=== PATIENT | male | born 1985 | race Caucasian/White ===

== ENCOUNTER 2016-09-06 10:11 | Emergency (ER) | payer OTHER ==
[~2016-09-06] VITALS: Ht 167.6 cm; Wt 81.8 kg
[2016-09-06 10:17] VITALS: TEMP 37; Ht 167.6 cm; Wt 81.8 kg
[2016-09-06] MEDS ORDERED: KETOROLAC TROMETHAMINE 30 MG/ML VIAL IV STA (11:00)
[2016-09-06] MEDS ORDERED: DEXAMETHASONE SOD INJ 10 MG/ML VIAL IV ONE (11:00)
[2016-09-06] MEDS ORDERED: ONDANSETRON INJ 2 MG/ML 2 ML VIAL IV STA (11:00)
[2016-09-06] MEDS ORDERED: HYDROmorphone INJ 1 MG/ML SYR IV STA ×2 (11:00→12:58)
[2016-09-06 12:05] LABS: URINE APPEARANCE CLEAR (CLEAR); URINE BILIRUBIN NEG (NEG); URINE COLOR YELLOW; URINE NITRITE NEG (NEG); URINE PH 7.5 (4.5-7.5); UROBILINOGEN NEG (NEG)
[2016-09-06 12:10] LABS: MANUAL MICROSCOPIC REQUIRED? NO; REVIEW REQ? NO
--- NOTE | 2016-09-06 12:42 | DIAGNOSTIC IMAGING REPORT ---
MRI LUMBAR SPINE W/O CONTRAST CLINICAL HISTORY: Low back pain with bilateral leg radiculopathy. WORK INJURY. TECHNIQUE: Sagittal and axial T1, T2 and STIR images were obtained. COMPARISON STUDY: 06/05/2014 OBSERVATIONS: The vertebral bodies and posterior elements appear intact. There is no abnormal bony signal present to suggest a marrow replacement process. L1-2: No disc protrusions or extrusions. No evidence of spinal canal or neural foraminal compromise. L2-3: No disc protrusions or extrusions. No evidence of spinal canal or neural foraminal compromise. L3-4: No disc protrusions or extrusions. No evidence of spinal canal or neural foraminal compromise. L4-5: There is a small broad-based central disc protrusion with mild deformity anterior aspect of thecal sac. There is minor bilateral foraminal narrowing. L5-S1: There is a small broad-based central disc protrusion minimally asymmetric to the right. This minimally deforms the anterior aspect the thecal sac. There is minor bilateral foraminal narrowing. There are suspected postsurgical changes the L5-S1 level. The conus medullaris and cauda equina appear normal. IMPRESSION: 1. Small predominantly central disc protrusions at the L4-5, and L5-S1 levels. There is minor secondary deformity of the thecal sac at these 2 levels. Electronically signed by: Rodolfo Mosquera M.D. 09/06/2016 12:41 PM Dictated Date/Time: 09/06/2016 12:35 PM
[2016-09-06] MEDS ORDERED: PRED20TA PO (13:56)
[2016-09-06] MEDS ORDERED: OXYC1TAB3 PO (13:56)
--- NOTE | 2016-09-06 13:58 | EMERGENCY ROOM VISIT NOTE ---
ED Visit Note First contact with patient: 10:30 CHIEF COMPLAINT: Acute low back pain after injury this morning HISTORY OF PRESENT ILLNESS: Patient is a 30-year-old white male who is roughly 2 years status post lumbar laminectomy and discectomy who presents to emergency department for evaluation of a low back injury that occurred this morning. He was trying to roll something heavy while bent over, and he felt cracking and popping in his low back with acute sharp, stabbing pain. It is located in the midline of his low back, that radiates along his beltline bilaterally. He states that he "lost feeling in his legs" for about 15 minutes. He then was able to ambulate, he tried to walk around and moved to see if he could loosen things up, but it was still very painful. He did not take any medication for discomfort. He rates his pain a 10/10 presently. He has urinated since the incident and denies any bowel or bladder incontinence or saddle anesthesias. He feels better when he is leaning forward on his cane and taking pressure off of his back. He had been seen by his surgeon, Dr. marcelino, a couple of months ago for ongoing low back pain. He was referred to physical therapy which provided him with minimal relief. He has pain in his back when he moves his legs and his legs feel weak, but he denies any numbness, tingling or paresthesias. REVIEW OF SYSTEMS:Review of systems as per HPI. All other systems reviewed were negative. 10 systems reviewed. PMH: Electronic medical records are reviewed and summarized as above/below. See Problem List. SOCIAL HISTORY: Patient lives at home. He is . Smoker. PHYSICAL EXAM: Vital Signs: Reviewed Nurse's notes. CONSTITUTIONAL: Patient is who is awake and alert and sitting on the bedside chair in moderate distress due to their back pain. There is significant discomfort with position changes. NECK: No bruits auscultated. Supple without lymphadenopathy. No thyromegaly. No meningeal signs. Full active range of motion without discomfort. CARDIOVASCULAR: Regular rate and rhythm, with normal S1 and S2, no murmur or gallop or rub is heard. No carotid bruits auscultated. No JVD. Peripheral pulses easily palpable. RESPIRATORY: Breath sounds equal and clear to auscultation without wheezes, rales, or rhonchi heard. Full and equal chest expansion without accessory muscle use or retractions. ABDOMEN: Bowel sounds are present. Abdomen is soft, nontender and nondistended. INTEGUMENTARY: No lesions or rash, normal skin turgor. LYMPH: No lymphadenopathy. SPINE: Examination of the patient's back does not demonstrate any ecchymosis, abrasions or outward signs of trauma. Well-healed surgical scar is noted. No erythema, increased warmth or induration. Patient has midline discomfort to palpation over the low lumbar spine. There is no pain over the SI joint or the sciatic notch. He has increased pain with range of motion including rotation and flexion. EXTREMITIES: Leg lengths are symmetrical. Negative logroll bilaterally. Normal strength including dorsi-flexion and plantar flexion of the great toes and ankles and flexion and extension of the knees. Positive bilateral straight leg raise testing. Lower extremity DTRs are equal and symmetrical bilaterally. Distal pulses are easily palpable. Sensation light touch is intact over the lower extremities bilaterally. EMERGENCY DEPARTMENT COURSE: The patient was seen and evaluated as above. His old records were reviewed. IV lock was initiated and he was Zofran 4 mg IV, Dilaudid 1 mg IV, Decadron 10 mg IV and Toradol 30 mg IV. Lumbar spine MRI was obtained. Findings are as noted below. He has mild disc bulging/protrusion at the L4 5 and L5-S1 levels. There is mild foraminal narrowing. The patient requested additional medication for pain and was given an additional Dilaudid 1 mg IV. Urinalysis was completely clear. MRI findings were reviewed with the patient. He has a history of a lumbar disc herniation, however his injured his back while pushing something heavy today. Differential diagnoses entertained included lumbar sprain, recurrent disc herniation, vertebral compression fracture, among others. His physical exam is not consistent with acute cord compression or cauda equina syndrome. I do not suspect hematoma or epidural abscess. Patient was provided an appointment with his spine surgeon, Dr. Oliver. He requested crutches. He was discharged to home on a prednisone taper and was given oxycodone for pain. He was educated on the worrisome signs or symptoms for which he should return to the emergency department. He rated his discomfort a 6/10 at discharge. MRI LUMBAR SPINE W/O CONTRAST CLINICAL HISTORY: Low back pain with bilateral leg radiculopathy. WORK INJURY. TECHNIQUE: Sagittal and axial T1, T2 and STIR images were obtained. COMPARISON STUDY: 06/05/2014 OBSERVATIONS: The vertebral bodies and posterior elements appear intact. There is no abnormal bony signal present to suggest a marrow replacement process. L1-2: No disc protrusions or extrusions. No evidence of spinal canal or neural foraminal compromise. L2-3: No disc protrusions or extrusions. No evidence of spinal canal or neural foraminal compromise. L3-4: No disc protrusions or extrusions. No evidence of spinal canal or neural foraminal compromise. L4-5: There is a small broad-based central disc protrusion with mild deformity anterior aspect of thecal sac. There is minor bilateral foraminal narrowing. L5-S1: There is a small broad-based central disc protrusion minimally asymmetric to the right. This minimally deforms the anterior aspect the thecal sac. There is minor bilateral foraminal narrowing. There are suspected postsurgical changes the L5-S1 level. The conus medullaris and cauda equina appear normal. IMPRESSION: 1. Small predominantly central disc protrusions at the L4-5, and L5-S1 levels. There is minor secondary deformity of the thecal sac at these 2 levels. Problem List Medical Problems: (1) Arthritis of hand, left Status: Resolved (2) Back pain Status: Resolved (3) Herniated lumbar intervertebral disc Status: Resolved (4) Knee pain Status: Resolved (5) Lumbar disc disease Status: Resolved (6) Pain, dental Status: Resolved Surgical Problems: (1) History of lumbar discectomy Status: Resolved Current/Historical Medications Scheduled Prednisone (Prednisone), 0 PO DAILY Scheduled PRN Oxycodone Ir (Roxicodone Ir), 1-2 TAB PO Q4H PRN for Severe Pain Allergies Coded Allergies: No Known Allergies (Unverified , 04/09/15) Vital Signs Date Time Temp Pulse Resp B/P Pulse Ox O2 Delivery O2 Flow Rate FiO2 09/06/16 14:50 78 18 118/58 96 09/06/16 14:30 78 18 118/58 96 Room Air 09/06/16 12:30 83 18 116/69 96 09/06/16 10:17 37.0 105 20 118/71 96 Room Air Laboratory Results Test 09/06/16 11:40 Urine Color YELLOW Urine Appearance CLEAR (CLEAR) Urine pH 7.5 (4.5-7.5) Urine Specific Thornton 1.010 (1.000-1.030) Urine Protein NEG (NEG) Urine Glucose (UA) NEG (NEG) Urine Ketones NEG (NEG) Urine Occult Blood NEG (NEG) Urine Nitrite NEG (NEG) Urine Bilirubin NEG (NEG) Urine Urobilinogen NEG (NEG) Urine Leukocyte Esterase NEG (NEG) Medications Administered Medications (Trade) Dose Ordered Sig/Casie Route Start Time Stop Time Status Last Admin Dose Admin Ketorolac Tromethamine (Toradol Inj) 30 mg NOW STAT IV 09/06/16 11:00 09/06/16 11:03 DC 09/06/16 11:09 30 MG Dexamethasone Sodium Phosphate (Decadron Inj) 10 mg NOW ONCE IV 09/06/16 11:00 09/06/16 11:03 DC 09/06/16 11:10 10 MG Hydromorphone HCl (Dilaudid Inj) 1 mg NOW STAT IV 09/06/16 11:00 09/06/16 11:03 DC 09/06/16 11:10 1 MG Ondansetron HCl (Zofran Inj) 4 mg NOW STAT IV 09/06/16 11:00 09/06/16 11:03 DC 09/06/16 11:09 4 MG Hydromorphone HCl (Dilaudid Inj) 1 mg NOW STAT IV 09/06/16 12:58 09/06/16 12:59 DC 09/06/16 14:11 1 MG Departure Information Impression Primary Impression: Acute low back pain Additional Impression: Lumbar disc disease Prescriptions Oxycodone Ir (Roxicodone Ir) 5 Mg Tab 1-2 TAB PO Q4H Y for Severe Pain, #20 TAB For Initial Treatment Prov: Thea Freeman PA 09/06/16 Prednisone (Prednisone) 20 Mg Tab 0 PO DAILY, #18 TAB 3 DAILY FOR 3 DAYS, THEN 2 DAILY FOR 3 DAYS, THEN 1 DAILY FOR 3 DAYS. Prov: Thea Freeman PA 09/06/16 Referrals No Doctor, Assigned (PCP) Elbert Oliver, DO Patient Instructions [facility] Additional Instructions DO NOT drive, drink alcohol, operate machinery, or perform dangerous activities today. You were given medications in the ER that can affect your ability to safely function or operate a vehicle. Prednisone 20mg: Once daily until the prescription is finished. It is best to take this earlier in the day as some patients note occasional difficulty falling asleep when taken in the late evening. Oxycodone (OxyIR) 5mg: Take 1-2 pills every four hours for breakthrough pain. Avoid alcohol, operating machinery or dangerous equipment, working on ladders or roofs, DRIVING, or situations where being under the influence may be dangerous. It is recommended to use an iycj-asz-iqfugew stool softener such as Colace, 100mg twice daily while taking this medication to avoid constipation. Acetaminophen(Tylenol) may be used for fever or pain. Use 1000mg every six hours as needed. Avoid using more than 3000mg in a 24 hour period. This medication can be taken if you need to drive, work, or perform activities which may be dangerous when taking narcotic pain medication. Rest and avoid heavy lifting until your symptoms resolve and then gradually return to full activity. A good rule of thumb is if it hurts your back to perform a certain activity, then it should be avoided until you are healthy again. A heating pad, warm compresses, or a hot shower may help with tight muscles and can be done several times a day as needed. Continue current medications. Return to the ER immediately for any numbness, tingling, severe pain, loss of control of your bowels or bladder, inability to walk, or as needed. Follow up with Dr. Oliver as scheduled for a recheck of your current condition. Problem Qualifiers
[2016-09-06 14:50] VITALS: BP 118/58; PULSE 78; O2SAT 96
[2016-10-13] MEDS ORDERED: HYDR-4330 PO (08:56)
[2017-02-11] MEDS ORDERED: MULT-506 PO (09:48)
[2017-02-11] MEDS ORDERED: TRAM-10 PO (09:48)
[2017-02-28] MEDS ORDERED: OXYC-57 PO (08:08)
[2017-02-28] MEDS ORDERED: HYDR-3419 PO (10:01)
== END 2016-09-06 14:50 | disposition home or self-care (01) ==
LOC: C.EDB 10:12 → C.EDC 14:50
DX: M54.5 Low back pain (principal); M51.06 Intervertebral disc disorders with myelopathy, lumbar region; M19.90 Unspecified osteoarthritis, unspecified site; F17.200 Nicotine dependence, unspecified, uncomplicated; Z98.890 Other specified postprocedural states

== ENCOUNTER → 2016-10-21 | Outpatient (CLI) | payer OTHER ==
[~2016-10-21] MED LIST: ATV/1 PO; HYDR-3419 PO; HYDR-4330 PO; MULT-506 PO; OXYC-57 PO; TRAM-10 PO
--- NOTE | 2016-10-21 12:31 | DIAGNOSTIC IMAGING REPORT ---
CHEST 2 VIEWS ROUTINE CLINICAL HISTORY: PRE OP TESTING. PT TO LAB FIRST COMPARISON STUDY: No previous studies for comparison. FINDINGS: The bones soft tissues and hemidiaphragms are normal. The cardiomediastinal silhouette is normal. The lungs are clear. The pulmonary vasculature is normal. IMPRESSION: Negative chest. Electronically signed by: Fernando Corral M.D. 10/21/2016 12:30 PM Dictated Date/Time: 10/21/2016 12:29 PM
[2016-10-21 12:50] LABS: BASO % 0.2 %; BASO ABS # 0.02 K/uL (0-0.2); COMPLETE YES; EOS % 1.5 %; HEMATOCRIT 43.8 % (42-52); IG% 0.2 %; LYMPH % 19.7 %; LYMPH ABS # 2.52 K/uL (1.2-3.4); MEAN CELL VOLUME 86.1 fL (80-100); MEAN CORPUSCULAR HEMOGLOBIN 29.3 pg (25-34); MEAN PLATELET VOLUME 9.3 fL (7.4-10.4); MONO % 7.8 %; NEUT % 70.6 %; PLATELET COUNT 331 K/uL (130-400); RED BLOOD COUNT 5.09 M/uL (4.7-6.1); WHITE BLOOD COUNT 12.77 K/uL (4.8-10.8)
== END | disposition home or self-care (01) ==
LOC: C.LAB 11:43
PROVIDERS: ATTEND Physician Assistant
DX: Z01.811 Encounter for preprocedural respiratory examination (principal); Z01.812 Encounter for preprocedural laboratory examination

== ENCOUNTER → 2016-10-21 | Outpatient (CLI) | payer OTHER ==
[2016-10-13 08:56] VITALS: Ht 170.2 cm; Wt 81.8 kg
[~2016-10-21] VITALS: Ht 170.2 cm; Wt 81.8 kg
[~2016-10-21] MED LIST changes: +CEFAZOLIN 2000 MG/60 ML D5W IV SCH; +LACTATED RINGER'S 1000ML 1,000 ML IV SCH; +LACTATED RINGER'S 1000ML 500 ML IV ONE; +SODIUM CHLORIDE 0.9% 1000ML 1,000 ML IV SCH
== END | disposition home or self-care (01) ==
LOC: C.LAB 08:00 → EDSTATUS 10-28 08:25
PROVIDERS: ATTEND Orthopaedic Surgery Orthopaedic Surgery of the Spine
DX: Z01.811 Encounter for preprocedural respiratory examination (principal); Z01.812 Encounter for preprocedural laboratory examination; M51.06 Intervertebral disc disorders with myelopathy, lumbar region

== ENCOUNTER → 2017-02-14 | Outpatient (CLI) | payer OTHER ==
[~2017-02-14] MED LIST changes: -CEFAZOLIN 2000 MG/60 ML D5W IV SCH; -HYDR-4330 PO; -LACTATED RINGER'S 1000ML 1,000 ML IV SCH; -LACTATED RINGER'S 1000ML 500 ML IV ONE; -SODIUM CHLORIDE 0.9% 1000ML 1,000 ML IV SCH
--- NOTE | 2017-02-14 14:52 | DIAGNOSTIC IMAGING REPORT ---
CHEST 2 VIEWS ROUTINE HISTORY: 31 years-old Male ENCOUNTER FOR STERILIZATION preoperative exam. No acute chest complaints. Initial study. COMPARISON: Chest radiograph 10/21/2016 TECHNIQUE: Frontal and lateral views of the chest FINDINGS: The cardiomediastinal and hilar silhouettes are within normal limits. There is no pneumothorax, pleural effusion or focal airspace consolidation. The bones of the chest are grossly intact. IMPRESSION: No acute cardiopulmonary process. The above report was generated using voice recognition software. It may contain grammatical, syntax or spelling errors. Electronically signed by: Marcelo Soto M.D. 02/14/2017 2:51 PM Dictated Date/Time: 02/14/2017 2:50 PM
== END | disposition home or self-care (01) ==
LOC: C.RAD 14:26
PROVIDERS: ATTEND Urology
DX: Z30.2 Encounter for sterilization (principal)

== ENCOUNTER 2017-02-28 05:37 | Day surgery (SDC) | payer OTHER ==
[2017-02-11 09:49] VITALS: BMI 29.0
[~2017-02-28] VITALS: Ht 165.1 cm; Wt 79.5 kg
[~2017-02-28 05:37] MED LIST changes: -ATV/1 PO; -HYDR-3419 PO; -OXYC-57 PO
[2017-02-28] MEDS ORDERED: ATV/1 PO (05:55)
[2017-02-28 06:00] VITALS: BP 112/79; PULSE 89; TEMP 36.9; O2SAT 98; Ht 165.1 cm; Wt 79.5 kg
[2017-02-28] MEDS ORDERED: LACTATED RINGER'S 1000ML 1,000 ML IV SCH (06:00)
[2017-02-28] MEDS ORDERED: BUPIVACAINE 0.5 % 5 MG/1 ML MPF 30ML VIAL ONE (06:57)
[2017-02-28] MEDS ORDERED: ONDANSETRON INJ 2 MG/ML 2 ML VIAL ONE (06:59)
[2017-02-28] MEDS ORDERED: FENTANYL CITRATE INJ 50 MCG/1 ML 2 ML VIAL ONE (06:59)
[2017-02-28] MEDS ORDERED: DEXAMETHASONE SOD INJ 4 MG/ML VIAL ONE (06:59)
[2017-02-28] MEDS ORDERED: LIDOCAINE HCL 2% 2 ML VIAL (20MG/ML) ONE (06:59)
[2017-02-28] MEDS ORDERED: MIDAZOLAM HCL 1 MG/ML 2ML VIAL ONE ×2 (06:59→07:04)
[2017-02-28] MEDS ORDERED: PROPOFOL IV EMULSION 10 MG/ML 20 ML VIAL IV ONE (06:59)
--- NOTE | 2017-02-28 07:14 | History & Physical Bridge Note ---
H&P Re-Evaluation Bridge Note: I have examined the patient, reviewed the History & Physical and in the interval since the performance of the History & Physical I have noted the following changes of clinical significance: No changes noted
[2017-02-28] MEDS ORDERED: ATROPINE SULFATE 0.1 MG/ML 5ML SYR IV PRN (07:45)
[2017-02-28] MEDS ORDERED: FENTANYL CITRATE INJ 50 MCG/1 ML 2 ML VIAL IV PRN (07:45)
[2017-02-28] MEDS ORDERED: ONDANSETRON INJ 2 MG/ML 2 ML VIAL IV PRN (07:45)
[2017-02-28] MEDS ORDERED: EpHEDrine SULFATE INJ 50 MG/ML AMP IV PRN (07:45)
[2017-02-28] MEDS ORDERED: HYDROmorphone INJ 1 MG/ML SYR IV PRN (07:45)
[2017-02-28] MEDS ORDERED: KETOROLAC TROMETHAMINE 30 MG/ML VIAL ONE (07:54)
[2017-02-28] MEDS ORDERED: SODIUM CHLORIDE 0.9% 1000ML 1,000 ML IV SCH (08:06)
--- NOTE | 2017-02-28 08:06 | [facility] Operative Report ---
Operative Report Operative Date Feb 28, 2017. Pre-Operative Diagnosis Sterilization Post-Operative Diagnosis Sterilization Procedure(s) Performed Bilateral Vasectomy under Anesthesia Surgeon Dr. 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 Supine position, sterile prep. Vasa were easily palpable. Skin and perivasal tissues were anesthesized with .5% marcaine. A 4mm midline scrotal raphe incision was made and the left vas brought to the incision. The vas was skeletonized for 2cm of length. A micro clip was placed on either end followed by suture ligation with a 3-0 chromic. The segment between the clips was excised and passed off of the table before I used a needle point bovie to cauterize the proximal and distal lumens of the remaining vasa. I then repeated the procedure on the right, utilizing the same incision. The right sided specimen was passed off the table after excision. There was excellent hemostasis, and the incision was closed with 2 vertical mattress sutures (3-0 chromic) and dermabond. I attest to the content of the Intraoperative Record and any orders documented therein. Any exceptions are noted below.
[2017-02-28] MEDS ORDERED: OXYC-57 PO (08:08)
--- NOTE | 2017-02-28 08:12 | Discharge Instructions ---
Discharge Instructions Date of Service Feb 28, 2017. Admission Reason for Admission: Sterilization Discharge Discharge Diagnosis / Problem: desired vasectomy Discharge Goals Goal(s): Decrease discomfort, Improve function, Increase independence, Improve disease control Activity Recommendations Activity Limitations: per Instructions/Follow-up section Lifting Limitations: no more than 25 pounds (for 3-5 days) Exercise/Sports Limitations: gradually increase as tolerated May Resume Sexual Activity: after one week Shower/Bathe: no limitations Driving or Machine Use: resume 1 day after discharge Please continue to use some sort of contraception. Please avoid overly strenuous activities for the next 3-5 days. Please avoid sexual activity for 5 days. Please wear tight fitting underwear for the next 1-2 weeks. . Instructions / Follow-Up Instructions / Follow-Up Please call Dr. Vizcaino's office to confirm your follow up appointment. Discharge Diet Recommended Diet: Regular Diet Procedures Procedures Performed: Bilateral Vasectomy under Anesthesia Pending Studies Studies pending at discharge: no Medical Emergencies . Who to Call and When: Medical Emergencies: If at any time you feel your situation is an emergency, please call 911 immediately. . Non-Emergent Contact Non-Emergency issues call your: Urologist Call Non-Emergent contact if: you have a fever, temperature is above 101.5, your pain is not controlled . . "Provider Documentation" section prepared by Keny Heard. . VTE Core Measure Inpt VTE Proph given/why not?: Treatment not indicated [place] Drug Monitoring Program Search Results: patient reviewed within database Drug Monitoring Findings: numerous narcotic rx's filled this year - all appear to be for legitimate issues
[2017-02-28] MEDS ORDERED: ACETAMINOPHEN 325 MG TAB PO PRN (08:15)
[2017-02-28] MEDS ORDERED: OXYCODONE/ACETAMINOPHEN 5-325 TAB PO PRN ×2 (08:15)
--- NOTE | 2017-02-28 08:42 | Anesthesiology Progress Note ---
Anesthesia Post Op Note Date & Time Feb 28, 2017 at 08:41 Vital Signs Pain Intensity: 1 Vital Signs Past 12 Hours Date Time Temp Pulse Resp B/P (MAP) Pulse Ox O2 Delivery O2 Flow Rate FiO2 02/28/17 08:15 74 16 116/82 100 Mask 10 02/28/17 08:05 36.2 77 16 120/85 100 Mask 10 02/28/17 06:00 36.9 89 20 112/79 (90) 98 Room Air Notes Mental Status: alert / awake / arousable, participated in evaluation Pt Amnestic to Procedure: Yes Nausea / Vomiting: adequately controlled Pain: adequately controlled Airway Patency, RR, SpO2: stable & adequate BP & HR: stable & adequate Hydration State: stable & adequate Anesthetic Complications: no major complications apparent
[2017-02-28 08:50] VITALS: BP 119/81; PULSE 84; TEMP 36.8; O2SAT 98
[2017-02-28 09:20] VITALS: BP 135/83; PULSE 80; O2SAT 100
[2017-02-28 09:50] VITALS: BP 109/71; PULSE 87; TEMP 36.7; O2SAT 97
[2017-02-28] MEDS ORDERED: HYDR-3419 PO (10:01)
== END 2017-02-28 10:09 | disposition home or self-care (01) ==
LOC: C.ACU 05:37
PROVIDERS: ATTEND Urology
DX: Z30.2 Encounter for sterilization (principal); F17.200 Nicotine dependence, unspecified, uncomplicated

== ENCOUNTER → 2017-07-28 | Outpatient (CLI) | payer OTHER ==
[~2017-07-28] MED LIST changes: +ATV/1 PO; +CITA20TA9 PO; +HYDR-3419 PO; +LORA-741 PO
== END | disposition home or self-care (01) ==
LOC: C.LAB 02:26
DX: Z02.83 Encounter for blood-alcohol and blood-drug test (principal)

== ENCOUNTER 2017-07-29 11:52 | Emergency (ER) | payer OTHER ==
[~2017-07-29] VITALS: Ht 167.6 cm; Wt 75.1 kg
[~2017-07-29 11:52] MED LIST changes: -CITA20TA9 PO; -LORA-741 PO
[2017-07-29 12:16] VITALS: TEMP 37; Ht 167.6 cm; Wt 75.1 kg
[2017-07-29] MEDS ORDERED: CITA20TA9 PO (13:10)
[2017-07-29] MEDS ORDERED: LORA-741 PO (13:10)
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
[2017-07-29 13:39] VITALS: BP 131/84; PULSE 95; O2SAT 96
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
== END 2017-07-29 14:07 | disposition home or self-care (01) ==
LOC: C.EDB 11:53 → C.EDD 14:07
DX: S06.0X9A Concussion with loss of consciousness of unspecified duration, initial encounter (principal); S16.1XXA Strain of muscle, fascia and tendon at neck level, initial encounter; S80.01XA Contusion of right knee, initial encounter; V57.5XXA Driver of pick-up truck or van injured in collision with fixed or stationary object in traffic accident, initial encounter; F17.200 Nicotine dependence, unspecified, uncomplicated